=== PATIENT | female | born 1935 | race Caucasian/White ===

== ENCOUNTER 2018-10-07 10:44 | Emergency (ER) | payer BC, MEDICARE, OTHER ==
[2018-10-07 11:31] VITALS: BP 120/67
--- NOTE | 2018-10-07 12:47 | UC ---
Nausea/Vomiting/Diarrhea HPI - HPI Summary HPI Summary: 83-year-old woman comes in with a chief complaint of diarrhea for one week. She 's having multiple episodes of diarrhea. The last couple of days she's had 4-5 episodes. Today she's had one. Prior to that she had more frequent stools. She has been feeling lightheaded when she stands up. She's had intermittent chills. She gets intermittent diffuse abdominal pain that goes away when she has a bowel movement. No vomiting. She has been able to drink water. She has no abdominal pain at this time. Has not seen any blood in her stool. She reports it's brown and watery. She did recently travel to [place] getting back on 26 September 2018. Overall she's feeling improved in comparison to the beginning of the illness one week ago. - History of Current Complaint Chief Complaint: UCGI Stated Complaint: DIARRHEA Time Seen by Provider: 10/07/18 12:26 Pain Intensity: 6 - Allergies/Home Medications Allergies/Adverse Reactions: Allergies Allergy/AdvReac Type Severity Reaction Status Date / Time aspirin Allergy Headache Verified 10/07/18 11:33 cashew nut Allergy See Comment Verified 10/07/18 11:33 naloxone [From [facility]] Allergy Altered Verified 10/07/18 11:33 Mental Status peanut Allergy See Comment Verified 10/07/18 11:33 Penicillins Allergy Rash Verified 10/07/18 11:33 pentazocine [From [facility]] Allergy Altered Verified 10/07/18 11:33 Mental Status Home Medications: Home Medications Acetaminophen [Mapap] 1 tab PO ONCE PRN 10/07/18 [History Confirmed 10/07/18] Folic Acid 1 mg PO DAILY 10/07/18 [History Confirmed 10/07/18] Magnesium 1 tab PO DAILY 10/07/18 [History Confirmed 10/07/18] Metoprolol Succinate [Metoprolol Succinate ER] 25 mg PO QPM 10/07/18 [History Confirmed 10/07/18] Pantoprazole Sodium 40 mg PO DAILY 10/07/18 [History Confirmed 10/07/18] Sotalol HCl [Sotalol] 80 mg PO DAILY 10/07/18 [History Confirmed 10/07/18] PMH/Surg Hx/FS Hx/Imm Hx Previously Healthy: Yes Cardiovascular History: Hypertension GI/ History: Gastroesophageal Reflux - Surgical History Surgical History: Yes Surgery Procedure, Year, and Place: knee replacement. heart valve replacement - Family History Known Family History: Positive: Non-Contributory - Social History Alcohol Use: None Substance Use Type: None Smoking Status (MU): Never Smoked Tobacco Review of Systems All Other Systems Reviewed And Are Negative: Yes Constitutional: Positive: Fever Skin: Positive: Negative Eyes: Positive: Negative ENT: Positive: Negative Respiratory: Positive: Negative Cardiovascular: Positive: Negative Gastrointestinal: Positive: Abdominal Pain, Diarrhea. Negative: Vomiting Genitourinary: Negative: Dysuria Motor: Positive: Negative Neurovascular: Positive: Negative Musculoskeletal: Positive: Negative Neurological: Positive: Negative Psychological: Positive: Negative Is Patient Immunocompromised?: No Physical Exam Triage Information Reviewed: Yes Appearance: Well-Appearing, No Pain Distress, Well-Nourished Vital Signs: Initial Vital Signs Temp 98.8 F 10/07/18 11:27 Pulse 88 10/07/18 11:27 Resp 18 10/07/18 11:27 BP 120/67 10/07/18 11:27 Pulse Ox 96 10/07/18 11:27 Vital Signs Reviewed: Yes Eye Exam: Normal Eyes: Positive: Conjunctiva Clear ENT: Positive: Pharynx normal Neck: Positive: Supple Respiratory: Positive: Lungs clear, Normal breath sounds, No respiratory distress Cardiovascular: Positive: RRR Abdomen Description: Positive: Nontender, Soft. Negative: CVA Tenderness (R), CVA Tenderness (L) Bowel Sounds: Positive: Present Musculoskeletal Exam: Normal Musculoskeletal: Positive: Strength Intact, ROM Intact Neurological: Positive: Alert, Muscle Tone Normal Psychological: Positive: Age Appropriate Behavior Skin Exam: Normal Naus/Vom/Diarrhea Course/Dx - Course Course Of Treatment: Overall patient's actually feeling better and comparisons earlier in the week. She has no abdominal pain at this time. Her abdomen is nontender on palpation. No fevers here vital signs are stable. She denies any blood in her stool. She has been able to take in by mouth. We discussed advance her diet as tolerated. We'll also get stool samples to determine if she needs any pharmacologic treatment. Plan is to follow-up with her primary care doctor and I gave her the warning signs that she needs to get reevaluated right away in the emergency department for pain fevers feeling ill phalanx and a pass out blood in the stool or other signs of things getting worse. - Differential Dx/Diagnosis Provider Diagnosis: Diarrhea, Intermittent generalized abdominal pain Condition At Discharge: Stable Discharge - Sign-Out/Discharge Documenting (check all that apply): Patient Departure All imaging exams completed and their final reports reviewed: No Studies - Discharge Plan Condition: Stable Disposition: HOME Patient Education Materials: Acute Diarrhea (ED), Acute Abdominal Pain (ED) Referrals: Maria C Jauregui MD [Primary Care Provider] - Additional Instructions: FOLLOW UP WITH YOUR DOCTOR. GO TO THE EMERGENCY DEPARTMENT IF YOUR CONDITION WORSENS; PAIN, FEVER, YOU FEEL LIKE PASSING OUT, YOU FEEL ILL, BLOOD IN YOUR STOOL, DEHYDRATION OR ANY QUESTIONS OR CONCERNS. - Billing Disposition and Condition Condition: STABLE Disposition: Home
--- NOTE | 2018-10-10 19:16 | UC ---
- Progress Note Progress Note: STOOL STUDIES WITH PRELIMINARY POSITIVE CAMPYLOBACTER JEJUNI. ALSO POSITIVE FOR FECAL LACTOFERRIN AND OCCULT BLOOD. UPON REVIEW OF THE CHART IT IS NOTED THAT NURSING SPOKE TO THE PATIENT ON THE PHONE YESTERDAY MORNING AND WAS ADVISED THAT HER DIARRHEA HAD STOPPED AND THAT SHE IS FEELING BETTER. HAS A FOLLOW-UP APPOINTMENT WITH HER PCP NEXT WEEK. UPON FURTHER REVIEW IT IS NOTED THAT AZITHROMYCIN 500 MG 3 DAYS WAS SENT TO THE PATIENT'S PHARMACY TODAY PRESUMABLY BASED ON POSITIVE CAMPYLOBACTER RESULTS ALTHOUGH THERE IS NO NOTE. GIVEN THAT THE PATIENT IS 83 YEARS OLD SHE CERTAINLY IS AT RISK FOR MORE SEVERE DISEASE HOWEVER IF HER DIARRHEA IS TRULY RESOLVED AND SHE IS FEELING WELL, ANTIBIOTICS MAY NOT BE INDICATED CAMPYLOBACTER IS OFTEN SELF-LIMITED. WOULD RECOMMEND ATTEMPTING TO CONTACT THE PATIENT TO SEE HOW SHE IS DOING. IF SYMPTOMS REALLY TRULY ARE RESOLVED I WOULD HOLD OFF ON ANTIBIOTICS AND KEEP HER PCP APPOINTMENT NEXT WEEK. IF SHE IS STILL HAVING DIARRHEA AT ANY LEVEL WOULD GO AHEAD AND TAKE THE ANTIBIOTICS PRESCRIBED. Course/Dx - Diagnoses Provider Diagnoses: Diarrhea, Intermittent generalized abdominal pain Discharge - Sign-Out/Discharge Documenting (check all that apply): Post-Discharge Follow Up All imaging exams completed and their final reports reviewed: No Studies - Discharge Plan Condition: Stable Disposition: HOME Patient Education Materials: Acute Diarrhea (ED), Acute Abdominal Pain (ED) Referrals: Maria C Jauregui MD [Primary Care Provider] - Additional Instructions: FOLLOW UP WITH YOUR DOCTOR. GO TO THE EMERGENCY DEPARTMENT IF YOUR CONDITION WORSENS; PAIN, FEVER, YOU FEEL LIKE PASSING OUT, YOU FEEL ILL, BLOOD IN YOUR STOOL, DEHYDRATION OR ANY QUESTIONS OR CONCERNS. - Billing Disposition and Condition Condition: STABLE Disposition: Home
== END 2018-10-07 13:01 | disposition home or self-care (01) ==
LOC: UCEAST 10:44
DX: R19.7 Diarrhea, unspecified (principal); R10.84 Generalized abdominal pain; Z88.0 Allergy status to penicillin; I10 Essential (primary) hypertension; K21.9 Gastro-esophageal reflux disease without esophagitis
CPT/HCPCS: 99211; G0463